=== PATIENT | female | born 1965 | race Caucasian/White ===

== ENCOUNTER 2016-04-14 13:31 | Inpatient (IN) | payer SELFPAY ==
[~2016-04-14] VITALS: Ht 165.1 cm; Wt 59.0 kg
[~2016-04-14 13:31] MED LIST: CORACAP PO; TAB-TAB PO; TIZA4 PO
[2016-04-14 13:32] VITALS: BP 169/108; PULSE 102; RESP 24; TEMP 97.9; O2SAT 100
[2016-04-14] MEDS ORDERED: MULT1TAB84 PO (13:53)
[2016-04-14] MEDS ORDERED: CORACAP6 PO (13:53)
[2016-04-14] MEDS ORDERED: CHOL100025 CHEW (13:53)
[2016-04-14] MEDS ORDERED: TIZA4TAB PO (13:53)
[2016-04-14 14:00] VITALS: BP 146/104; PULSE 89; RESP 24; O2SAT 100
[2016-04-14] MEDS ORDERED: ZANA2CAP PO (14:06)
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
[2016-04-14 14:39] LABS: AUTOMATED NEUTROPHIL # 4.8 TH/MM3 (1.8-7.7); BASOPHIL # 0.1 TH/MM3 (0-0.2); BASOPHIL % 0.9 % (0.0-2.0); EOSINOPHIL # 0.1 TH/MM3 (0-0.4); HEMATOCRIT 42.3 % (35.0-46.0); HEMO FLAGS DIFF FINAL; LYMPH % 36.5 % (9.0-44.0); LYMPHOCYTE # 3.2 TH/MM3 (1.0-4.8); MEAN CELL VOLUME 91.1 FL (80.0-100.0); MEAN CORPUSCULAR HEMOGLOBIN 31.7 PG (27.0-34.0); MEAN CORPUSCULAR HGB CONC 34.8 % (32.0-36.0); MONO % 6.6 % (0.0-8.0); PLATELET COUNT 280 TH/MM3 (150-450); RED BLOOD COUNT 4.64 MIL/MM3 (4.00-5.30); RED CELL DISTRIBUTION WIDTH 13.3 % (11.6-17.2); WHITE BLOOD COUNT 8.7 TH/MM3 (4.0-11.0)
--- NOTE | 2016-04-14 14:58 | RADRPT ---
EXAM DATE/TIME: 04/14/2016 14:44 [facility] COMPARISON: CT BRAIN W/O CONTRAST, February 19, 2014, 18:00. INDICATIONS : Syncope, left side facial and extremity weakness. RADIATION DOSE: 56.35 CTDIvol (mGy) MEDICAL HISTORY : Cardiovascular disease. Hypertension. SURGICAL HISTORY : None. ENCOUNTER: Initial ACUITY: 1 day PAIN SCALE: 3/10 LOCATION: Bilateral cranial TECHNIQUE: Multiple contiguous axial images were obtained of the head. Using automated exposure control and adj ustment of the mA and/or kV according to patient size, radiation dose was kept as low as reasonably a chievable to obtain optimal diagnostic quality images. FINDINGS: CEREBRUM: The ventricles are normal for age. No evidence of midline shift, mass lesion, hemorrhage or acute in farction. No extra-axial fluid collections are seen. POSTERIOR FOSSA: The cerebellum and brainstem are intact. The 4th ventricle is midline. The cerebellopontine angle i s unremarkable. EXTRACRANIAL: The visualized portion of the orbits is intact. SKULL: The calvaria is intact. No evidence of skull fracture. CONCLUSION: Normal examination. No significant change has occurred. Mario Hawley MD on April 14, 2016 at 14:55 Board Certified Radiologist. This report was verified electronically.
[2016-04-14 15:00] VITALS: BP 138/88; PULSE 87; RESP 22; O2SAT 99
[2016-04-14 15:10] LABS: ANION GAP 10 MEQ/L (5-15); BLOOD UREA NITROGEN 17 MG/DL (7-18); CHLORIDE 104 MEQ/L (98-107); GLOMERULAR FILTRATION RATE 54 ML/MIN (>89); POTASSIUM 3.7 MEQ/L (3.5-5.1); SODIUM (NA) 142 MEQ/L (136-145)
[2016-04-14 15:12] LABS: CREATINE KINASE 136 U/L (26-192)
--- NOTE | 2016-04-14 15:45 | RADRPT ---
EXAM DATE/TIME: 04/14/2016 14:38 [facility] COMPARISON: CHEST SINGLE AP, March 28, 2015, 12:41. INDICATIONS : Chest pain and Cough. Tingling feeling in left hands, arm and head. MEDICAL HISTORY : None. SURGICAL HISTORY : None. ENCOUNTER: Initial ACUITY: 3 weeks PAIN SCORE: 0/10 LOCATION: Bilateral chest FINDINGS: A single view of the chest demonstrates the lungs to be symmetrically aerated without evidence of mas s, infiltrate or effusion. The cardiomediastinal contours are unremarkable. Osseous structures are intact. CONCLUSION: No acute disease. No significant change has occurred. Mario Hawley MD on April 14, 2016 at 15:43 Board Certified Radiologist. This report was verified electronically.
[2016-04-14] MEDS ORDERED: ONDANSETRON HCL 4 MG/2 ML VIAL IV PUSH PRN ×2 (16:30→17:30)
[2016-04-14] MEDS ORDERED: NITROGLYCERIN 0.4 MG SL 25 TABS/BTL SL PRN (16:30)
--- NOTE | 2016-04-14 17:20 | HHI.HP ---
[facility]ician No Primary Care Physician Admission Diagnosis TIA, Chest pain Diagnoses: (1) TIA (transient ischemic attack) Diagnosis: Principal (2) Chest pain Diagnosis: Principal Chief Complaint: chest pain/ left sided numbness Travel History International Travel<30 Days: No Contact w/Intl Traveler <30 Da: No Traveled to Known Affected Are: No History of Present Illness patient is a 51 y/o female with history of hypertension- however not on any medications, presented to ER with chest pain. she says that the chest pain started few days ago. pain was described as midsternal chest pressure. she says that she's had some exertional dyspnea along with the pain. she says that this morning after she returned from her job, she started to have worsening chest pain for which she went to [facility] to check her blood pressure. she says that got scared after the machine reported her blood pressure as ' high'. she then started to have some numbness and tingling over the left arm, left face. this lasted for about two hours. on her way to ER she suddenly passed out. she denies any history of chest pain in the past but she says that her father had a heart attack at the age of 55. Review of Systems Constitutional: DENIES: Fever, Weight loss, Chills, Night Sweats Eyes: DENIES: Blurred vision, Diplopia, Vision loss, Double Vision Ears, nose, mouth, throat: DENIES: Tinnitus, Vertigo, Throat pain, Epistaxis Respiratory: DENIES: Apneas, Cough, Snoring, Wheezing, Hemoptysis, Sputum production, Shortness of breath Cardiovascular: COMPLAINS OF: Chest pain, Dyspnea on Exertion, DENIES: Palpitations, Syncope, PND, Lower Extremity Edema, Orthopnea, Claudication Gastrointestinal: DENIES: Abdominal pain, Black stools, Bloody stools, Constipation, Diarrhea, Nausea, Vomiting, Difficulty Swallowing, Anorexia Genitourinary: DENIES: Urinary frequency, Urgency, Hematuria, Dysuria Musculoskeletal: DENIES: Joint pain, Muscle aches, Stiffness, Joint Swelling Integumentary: DENIES: Rash Neurologic: COMPLAINS OF: Paresthesias, DENIES: Abnormal gait, Headache, Localized weakness, Seizures, Speech Problems, Tremor, Poor Balance Psychiatric: DENIES: Anxiety, Confusion, Mood changes, Depression, Hallucinations, Agitation, Suicidal Ideation, Homicidal Ideation, Delusions Past Family Social History Past Medical History hypertension back pain Past Surgical History hysterectomy Reported Medications Zanaflex (Tizanidine HCl) 2 Mg Cap 2 Mg PO TID PRN Multivitamin Adults (Multiple Vitamins W/ Minerals) 1 Tab 1 Tab PO DAILY Vitamin D3 (Cholecalciferol) 1,000 Unit Chew 1,000 Units CHEW DAILY Coral Calcium 500 Mg Cap 500 Mg PO DAILY Tizanidine (Tizanidine HCl) 4 Mg Tab 4 Mg PO Q8HR PRN Allergies: Coded Allergies: Penicillin (Verified Allergy, Severe, HIVES, 04/14/16) Active Ordered Medications Current Medications Ondansetron HCl (Zofran Inj) 4 mg Q8HR PRN IV PUSH NAUSEA; Start 04/14/16 at 16 :30; Status UNV Nitroglycerin (Nitrostat Sl) 0.4 mg Q5M PRN SL CHEST PAIN; Start 04/14/16 at 16 :30 Family History heart attack in her father at the age of 55. Social History smokes occasionally- doesn't drink. Physical Exam Vital Signs Vital Signs Date Time Temp Pulse Resp B/P Pulse Ox O2 Delivery O2 Flow Rate FiO2 04/14/16 15:00 87 22 138/88 99 Room Air 04/14/16 14:00 89 24 146/104 100 Room Air 04/14/16 13:55 99 25 100 Room Air 04/14/16 13:32 97.9 102 24 169/108 100 Room Air Physical Exam GENERAL: This is a well-nourished, well-developed patient, in no apparent distress. SKIN: No rashes, ecchymoses or lesions. Cool and dry. HEAD: Atraumatic. Normocephalic. No temporal or scalp tenderness. EYES: Pupils equal round and reactive. Extraocular motions intact. No scleral icterus. No injection or drainage. ENT: Nose without bleeding, purulent drainage or septal hematoma. Throat without erythema, tonsillar hypertrophy or exudate. Uvula midline. Airway patent. NECK: Trachea midline. No JVD or lymphadenopathy. Supple, nontender, no meningeal signs. CARDIOVASCULAR: Regular rate and rhythm without murmurs, gallops, or rubs. RESPIRATORY: Clear to auscultation. Breath sounds equal bilaterally. No wheezes , rales, or rhonchi. GASTROINTESTINAL: Abdomen soft, non-tender, nondistended. No hepato-splenomegaly , or palpable masses. No guarding. MUSCULOSKELETAL: Extremities without clubbing, cyanosis, or edema. No joint tenderness, effusion, or edema noted. No calf tenderness. Negative Homans sign bilaterally. NEUROLOGICAL: Awake and alert. Cranial nerves II through XII intact. Motor and sensory grossly within normal limits. Five out of 5 muscle strength in all muscle groups. Normal speech. Laboratory Laboratory Tests Test 04/14/16 14:15 White Blood Count 8.7 Red Blood Count 4.64 Hemoglobin 14.7 Hematocrit 42.3 Mean Corpuscular Volume 91.1 Mean Corpuscular Hemoglobin 31.7 Mean Corpuscular Hemoglobin 34.8 Concent Red Cell Distribution Width 13.3 Platelet Count 280 Mean Platelet Volume 9.3 Neutrophils (%) (Auto) 55.0 Lymphocytes (%) (Auto) 36.5 Monocytes (%) (Auto) 6.6 Eosinophils (%) (Auto) 1.0 Basophils (%) (Auto) 0.9 Neutrophils # (Auto) 4.8 Lymphocytes # (Auto) 3.2 Monocytes # (Auto) 0.6 Eosinophils # (Auto) 0.1 Basophils # (Auto) 0.1 CBC Comment DIFF FINAL Differential Comment Sodium Level 142 Potassium Level 3.7 Chloride Level 104 Carbon Dioxide Level 28.0 Anion Gap 10 Blood Urea Nitrogen 17 Creatinine 1.06 Estimat Glomerular Filtration 54 Rate Random Glucose 90 Calcium Level 10.5 Total Creatine Kinase 136 Creatine Kinase MB 2.0 Troponin I LESS THAN 0.02 Result Diagram: 04/14/16 1415 04/14/16 1415 Imaging Last Impressions Head CT 04/14/16 0000 Signed Impressions: Service Date/Time: Thursday, April 14, 2016 14:44 - CONCLUSION: Normal examination. No significant change has occurred. Mario Hawley MD Chest X-Ray 04/14/16 0000 Signed Impressions: Service Date/Time: Thursday, April 14, 2016 14:38 - CONCLUSION: No acute disease. No significant change has occurred. Mario Hawley MD EKG; sinus arrhythmia Assessment and Plan Assessment and Plan A/P - TIA neuro-checks- start aspirin-check carotid doppler and echo- neurology consulted -chest pain/ exertional dyspnea/ syncope with strong family history of CAD on aspirin- check the trend of cardiac enzymes- will consult cardiology -hypertension? - not on any meds at home- will monitor BP for now- vasotec prn -DVT prophylaxis with SCD's Discussed Condition With ER physician and the patient. Problem Qualifiers (1) TIA (transient ischemic attack): Qualified Code: G45.9 - Transient cerebral ischemia, unspecified type (2) Chest pain: Qualified Code: R07.9 - Chest pain, unspecified type Ericka Reeder MD Apr 14, 2016 17:20
[2016-04-14] MEDS ORDERED: ZOLPIDEM TARTRATE 5 MG TAB PO PRN (17:30)
[2016-04-14] MEDS ORDERED: ENALAPRILAT 1.25 MG/ML VIAL IV PUSH PRN (17:30)
[2016-04-14] MEDS ORDERED: ACETAMINOPHEN 325 MG TAB PO PRN (17:30)
[2016-04-14] MEDS ORDERED: SODIUM CHLORID 0.9% 500 ML INJ 500 ML IV ONE (17:30)
[2016-04-14 18:00] VITALS: BP 170/98; PULSE 78; RESP 17; O2SAT 99
--- NOTE | 2016-04-14 18:01 | MB ---
cc: SYLVIA FINNEGAN M.D. DATE OF CONSULTATION 04/14/2016 DATE OF 1965, 51 years old. REASON FOR CONSULTATION Possible TIA. HISTORY OF THE PRESENT ILLNESS The patient a pleasant 51-year-old woman with chronic history of back pain, received epidural steroid injections with Dr. Howard. Came in because she just was not feeling well for some time now but she started having some chest pain, pressure, some radiation into the left jaw, face with numbness as well as in the left arm. Feeling a little lightheaded and dizzy. Apparently there was a syncope outside of the ED when she opened her car door. No seizure-like events. She is concerned because she was here about 9 months ago and she had elevated blood pressures but she left and did not want to have an evaluation. Her father at 55 of a heart attack. Her other risk factors besides hypertension, she used to smoke in the past. She did go and get some aspirin today and took two baby aspirins. She still has some chest pressure, reproducible pressure. Denies any headaches, nausea or vomiting. No overt weakness. She just states she does not feel normal. She has a history of anxiety, hypertension, insomnia, chronic back pain follows with pain management. PAST SURGICAL HISTORY 1. C section. 2. Hysterectomy. 3. Arthroscopic right knee surgery. SOCIAL HISTORY Social drinker and currently no longer smokes cigarettes, occasional marijuana. ALLERGIES PENICILLIN. MEDICATIONS Home meds are: 1. Tizanidine. 2. Multivitamin. 3. D3. 4. Calcium. PHYSICAL EXAMINATION VITAL SIGNS: Temperature 97.9, pulse 87, respiratory rate 22, blood pressure 138/88. NECK: Supple. No carotid bruits. HEART: Currently is regular, S1-S2. No murmurs. LUNGS: Clear. CHEST: She has some tenderness over her anterior chest wall to palpation. NEUROLOGIC: She is awake, alert. She is oriented. Fluent. Pupils are reactive. Visual rae are full. Face is symmetrical. Tongue is midline. Sensory otherwise she states that she is numb over the ulnar distribution of the left arm which has been ongoing for some time now. There is no drift. No leg lag. Cerebellar testing is normal. Toes are downgoing. Reflexes are 1-2+. Finger nose finger does not past point. Gait is withheld. She is at bed rest right now. LABORATORY DATA CBC normal. Chemistries creatinine 1.06, GFR 54, calcium 10.5. Troponin less than 0.01. IMAGING STUDIES Chest x-ray no acute disease. CT head normal without any acute findings. She had an electrocardiogram looks like a sinus rhythm, heart rate in the 90s, however sinus, possible sinus tachycardia. IMPRESSION A 51-year-old woman with what sounds like TIA type symptoms. Her NIH currently at best is a one. She does have hypertension and chest pain to be determined. Believe cardiology probably will be seeing her versus the hospitalist evaluating her cardiac issues. RECOMMENDATIONS Recommend doing a stroke, TIA workup. Get an MRI of the brain and [place] of [place] MRA, carotid ultrasound, 2-D echo. Put her on baby aspirin daily. Normalize her blood pressure. SCDs and Lovenox for DVT prophylaxis. Check a lipid panel. Indicate a consult cardiology to determine if she needs to have any other testing. Further recommendations to be made accordingly. MD JANNETTE Karimi/LYSSA /4:57 PM /5:40 PM
[2016-04-14] MEDS: ASPIRIN EC 81 MG TABEC PO SCH (18:02)
[2016-04-14 19:05] VITALS: BP 139/93; PULSE 73; RESP 16; O2SAT 98
--- NOTE | 2016-04-14 20:02 | RADRPT ---
EXAM DATE/TIME: 04/14/2016 18:33 [facility] COMPARISON: No previous studies available for comparison. INDICATIONS : Transient ischemic attack. MEDICAL HISTORY : Hypertension. Chronic back and neck pain. SURGICAL HISTORY : Hysterectomy. section. Right knee surgery. ENCOUNTER: Initial ACUITY: 1 day PAIN SCORE: 0/10 LOCATION: Bilateral neck PEAK SYSTOLIC VELOCITIES (cm/sec): ICA/CCA RATIO: Right: 0.8 Left: 1.0 ICA: Right: 83 Left: 83 CCA: Right: 106 Left: 81 ECA: Right: 124 Left: 90 VERTEBRAL: Right: 49 antegrade Left: 40 antegrade Elevated flow velocities and ICA/CCA ratios have been found to correlate with increased degrees of vessel stenosis, calculated as percentage of diameter relative to a normal segment of distal ICA/CCA FINDINGS: RIGHT CAROTID: No significant stenosis is visualized. Minimal plaque is present. The waveforms are within normal thomas its. LEFT CAROTID: No significant stenosis is visualized. Minimal plaque is present. The waveforms are within normal li mits. VERTEBRAL ARTERIES: Antegrade flow is seen in both vertebral arteries. MISCELLANEOUS: None. CONCLUSION: Minimal plaque with no evidence of stenosis. Srinivasan Sweet MD on April 14, 2016 at 20:00 Board Certified Radiologist. This report was verified electronically.
[2016-04-14 21:00] VITALS: BP 137/91; PULSE 76; RESP 16; O2SAT 99
[2016-04-15] VITALS (10 sets, daily range): BP systolic 118–137; BP diastolic 68–97; PULSE 65–85; RESP 16–20; TEMP 95.1–97.5; O2SAT 96–100
[2016-04-15] MEDS ORDERED: ASPIRIN EC 81 MG TABEC PO SCH (09:00)
--- NOTE | 2016-04-15 09:36 | HHI.PR ---
Subjective Remarks walking in the room. says that chest pain is much better today. no new complaints. Objective Vitals Vital Signs Date Time Temp Pulse Resp B/P Pulse Ox O2 Delivery O2 Flow Rate FiO2 04/15/16 08:00 96.7 72 20 137/97 100 04/15/16 03:32 95.1 71 20 129/91 99 04/15/16 01:00 73 16 125/78 100 Room Air 04/14/16 21:00 76 16 137/91 99 Room Air 04/14/16 19:05 73 16 139/93 98 Room Air 04/14/16 18:00 78 17 170/98 99 Room Air 04/14/16 15:00 87 22 138/88 99 Room Air 04/14/16 14:00 89 24 146/104 100 Room Air 04/14/16 13:55 99 25 100 Room Air 04/14/16 13:32 97.9 102 24 169/108 100 Room Air Result Diagram: 04/14/16 1415 04/14/16 1415 Imaging Last Impressions Head CT 04/14/16 0000 Signed Impressions: Service Date/Time: Thursday, April 14, 2016 14:44 - CONCLUSION: Normal examination. No significant change has occurred. Mario Hawley MD Chest X-Ray 04/14/16 0000 Signed Impressions: Service Date/Time: Thursday, April 14, 2016 14:38 - CONCLUSION: No acute disease. No significant change has occurred. Mario Hawley MD Carotid Artery Ultrasound 04/14/16 0000 Signed Impressions: Service Date/Time: Thursday, April 14, 2016 18:33 - CONCLUSION: Minimal plaque with no evidence of stenosis. Srinivasan Sweet MD Objective Remarks GENERAL: This is a well-nourished, well-developed patient, in no apparent distress. CARDIOVASCULAR: Regular rate and regular rhythm without murmurs, gallops, or rubs. RESPIRATORY: Clear to auscultation. Breath sounds equal bilaterally. No wheezes , rales, or rhonchi. GASTROINTESTINAL: Abdomen soft, non-tender, nondistended. Normal, active bowel sounds MUSCULOSKELETAL: Extremities without clubbing, cyanosis, or edema. NEURO: Alert & Oriented x4 to person, place, time, situation. Moves all ext x4 Procedures none Medications and IVs Current Medications Ondansetron HCl (Zofran Inj) 4 mg Q8HR PRN IV PUSH NAUSEA; Start 04/14/16 at 16 :30 Nitroglycerin (Nitrostat Sl) 0.4 mg Q5M PRN SL CHEST PAIN; Start 04/14/16 at 16 :30 Aspirin (Ecotrin Ec) 81 mg DAILY PO ; Start 04/15/16 at 09:00; Stop 04/15/16 at 09:00; Status DC Aspirin (Ecotrin Ec) 81 mg DAILY PO Last administered on 04/14/16 18:02; Start 04/14/16 at 17:15 Tizanidine HCl (Zanaflex) 2 mg TID PRN PO SPASM; Start 04/14/16 at 17:15 Ondansetron HCl (Zofran Inj) 4 mg Q8HR PRN IV PUSH NAUSEA; Start 04/14/16 at 17 :30; Status UNV Acetaminophen (Tylenol) 650 mg Q4H PRN PO FEVER/ PAIN Last administered on 04/14 18:03; Start 04/14/16 at 17:30 Zolpidem Tartrate 5 mg 5 mg HS PRN PO INSOMNIA; Start 04/14/16 at 17:30 Sodium Chloride (NS 500 ml Inj) 500 ml @ 50 mls/hr Q10H ONCE IV Last administered on 04/14/16 18:02; Start 04/14/16 at 17:30; Stop 04/15/16 at 03:29 ; Status DC Enalaprilat (Vasotec Inj) 1.25 mg Q8H PRN IV PUSH SBP>180, DBP>110; Start at 17:30 A/P Assessment and Plan A/P - TIA head Ct and carotid doppeler negative- MRI/MRA brain pending- neuro-checks- started aspirin- neurology consult appreciated. -chest pain/ exertional dyspnea/ syncope with strong family history of CAD on aspirin- cardiology consulted- plan for stress test. -hypertension? - not on any meds at home- will monitor BP for now- vasotec prn -DVT prophylaxis with SCD's Ericka Reeder MD Apr 15, 2016 09:36
[2016-04-15] MEDS: ASPIRIN EC 81 MG TABEC PO SCH (09:47)
--- NOTE | 2016-04-15 10:57 | RADRPT ---
EXAM DATE/TIME: 04/15/2016 10:20 [facility] COMPARISON: No previous studies available for comparison. INDICATIONS : TIA. Left sided numbness. Dizziness. MEDICAL HISTORY : Hypertension. SURGICAL HISTORY : section. Tubal ligation. Right knee surgery. ENCOUNTER: Subsequent ACUITY: 2 day PAIN SCORE: 0/10 LOCATION: head. TECHNIQUE: Multiplanar, multisequence MRI of the brain was performed without contrast. FINDINGS: CEREBRUM: The ventricles are normal for age. No evidence of midline shift, mass lesion, hemorrhage or acute in farction. No extraaxial fluid collections are seen. The pituitary gland and suprasellar cistern are normal in configuration. WHITE MATTER: No significant signal abnormalities are seen in the white matter. POSTERIOR FOSSA: The cerebellum and brainstem are intact. The 4th ventricle is midline. The cerebellopontine angle is unremarkable. The cerebellar tonsils are normal in position. DIFFUSION IMAGING: No focal areas of restricted diffusion are seen. No evidence of acute infarction. EXTRACRANIAL: The visualized portions of the orbits and paranasal sinuses are unremarkable. CONCLUSION: Normal examination. Merry Ramsey MD on April 15, 2016 at 10:55 Board Certified Radiologist. This report was verified electronically.
--- NOTE | 2016-04-15 11:08 | RADRPT ---
EXAM DATE/TIME: 04/15/2016 10:20 [facility] COMPARISON: No previous studies available for comparison. INDICATIONS : TIA. Left sided numbness. Dizziness. MEDICAL HISTORY : Hypertension. SURGICAL HISTORY : section. Tubal ligation. Right knee surgery. ENCOUNTER: Subsequent ACUITY: 2 day PAIN SCORE: 0/10 LOCATION: head. Please note a normal MRA of the brain does not entirely exclude the possibility of a small aneurysm, nor the possibility of distal intracranial vessel disease. TECHNIQUE: 3D time of flight MRA was performed. Source images, multiplanar STS MIP, and 3D volume MIP reconstru ctions were reviewed. FINDINGS: There is excellent visualization of the major intracranial arteries out to the second-order branch ve ssels. There is no evidence for aneurysm, vessel truncation or stenosis, and no evidence for vascula r malformation. CONCLUSION: Normal examination. Merry Ramsey MD on April 15, 2016 at 11:06 Board Certified Radiologist. This report was verified electronically.
--- NOTE | 2016-04-15 12:01 | MB ---
cc: [facility] DATE OF CONSULTATION: 04/15/2016 DATE OF : 1965. REASON FOR CONSULTATION Epigastric chest discomfort. HISTORY OF PRESENT ILLNESS 51-year-old female with past medical history significant for anxiety, chronic back pain, hypertension, positive family history for premature CAD. Presented to the hospital with complaining of epigastric chest pressure discomfort which radiates to the jaw and associated with numbness to the face as well as to the left arm and toe was is episode was at complain by an episode loss of consciousness and syncope. She has been consulted to neurology to rule out stroke/TIA. CT scan is negative so far she has a pending MRI/MRA of the brain. Cardiology has been consulted because episode of chest pressure that she reports she has been going on from a couple of days. Currently she remains she is chest pain free. She denies shortness of breath, palpitations, nausea, vomiting, diarrhea, chest trauma. REVIEW OF SYSTEMS Review of systems negative except for what is mentioned in the history of present illness. PAST SURGERIES 1. 2. hysterectomy 3. Arthroscopic right knee surgery 4. hypertension 5. Anxiety 6. chronic back pain 7. status post steroid injections in the past. ALLERGIES PENICILLIN SOCIAL HISTORY: She is a social drinker and smoker. She uses occasional marijuana. HOME MEDICATIONS: Multivitamin Vitamin D Calcium . FAMILY HISTORY Her dad had a massive heart attack at age 55. PHYSICAL EXAMINATION VITAL SIGNS: Temperature 97.7, respiratory rate 20, pulse 72, blood pressure 137 /97. She is satting 100% on room air. IN GENERAL: She is awake, alert and oriented x 3 in no acute distress. NECK: No jugular venous distention. No carotid bruits. HEART: Regular rate and rhythm. No murmurs, rubs or gallops appreciated. LUNGS: Clear to auscultation bilaterally. No wheezes or rhonchi or rales. ABDOMEN: Soft, nontender, nondistended with positive bowel sign. EXTREMITIES: No cyanosis or edema. DATA CBC hemoglobin of 14, hematocrit of 42, platelet count 280. Chemistries, electrolytes sodium 142, potassium 3.7, BUN 17, creatinine 1.06, troponins have been negative x3 with values of less than 0.02, cholesterol 256, LDL 103, HDL 136. Head CT is normal. CHEST X-RAY He is there is no acute pulmonary per cardiopulmonary process. Carotid ultrasound shows minimal apply with no evidence of stenosis. EKG shows a second normal sinus rhythm. Telemetry shows also normal sinus rhythm. No events on telemetry monitoring ASSESSMENT AND PLAN: A 51-year-old female with cardiac risk factors that include hypertension and family history that presents to the hospital with what sounds to be a transient ischemic attack symptoms. So far her head CT negative. She still pending an brain MRI/MRA. Troponins have been negative. She is chest pain-free right now she does have of the strong family history of coronary artery disease. I understand that after TIA and CVA has been ruled out it would be reasonable do myocardial perfusion study to further assess any coronary artery disease. Thus for now she should continue the aspirin and low-dose XAVIER inhibitor as well as a statin and we get a myocardial perfusion study either today or tomorrow, after she has been cleared from a neurology standpoint. If the Lexiscan is negative she should be able to discharge home with outpatient follow up. Thank you for the opportunity to take part in the care of this patient. Feel free to contact me with any questions or concerns. MD RUBIO Grigsby/skyler /9:40 AM /10:38 AM GENIE
--- NOTE | 2016-04-15 12:27 | EC ---
Study Study Date:04/15/2016 STUDY CONCLUSIONS SUMMARY - Left ventricle: The cavity size was normal. Wall thickness was normal. Systolic function was normal. The estimated ejection fraction was in the range of 55% to 60%. Wall motion was normal; there were no regional wall motion abnormalities. - Right atrium: The atrium was mildly dilated. - Tricuspid valve: Mild regurgitation. - Pulmonary arteries: PA peak pressure: 32mm Hg (S). If LV function is below 40, please consider prescribing an ACEI or ARB or document rationale for non-use. PROCEDURE DATA STUDY STATUS: Elective. Procedure: Transthoracic echocardiography. Image quality was good. Scanning was performed from the parasternal, apical, and subcostal acoustic windows. Study completion: The patient tolerated the procedure well. Transthoracic echocardiography. M-mode, complete 2D, complete spectral Doppler, and color Doppler. Patient status: Inpatient. CARDIAC ANATOMY LEFT VENTRICLE: The cavity size was normal. Wall thickness was normal. Systolic function was normal. The estimated ejection fraction was in the range of 55% to 60%. Wall motion was normal; there were no regional wall motion abnormalities. AORTIC VALVE: Trileaflet; normal thickness leaflets. Doppler: Transvalvular velocity was within the normal range. There was no stenosis. No regurgitation. AORTA: Aortic root: The aortic root was normal in size. MITRAL VALVE: Structurally normal valve. Doppler: Transvalvular velocity was within the normal range. There was no evidence for stenosis. No regurgitation. LEFT ATRIUM: The atrium was normal in size. RIGHT VENTRICLE: The cavity size was normal. Wall thickness was normal. PULMONIC VALVE: Doppler: Transvalvular velocity was within the normal range. There was no evidence for stenosis. No regurgitation. TRICUSPID VALVE: Structurally normal valve. Doppler: Transvalvular velocity was within the normal range. Mild regurgitation. PULMONARY ARTERY: The main pulmonary artery was normal-sized. Systolic pressure was within the normal range. RIGHT ATRIUM: The atrium was mildly dilated. PERICARDIUM: There was no pericardial effusion. SYSTEMIC VEINS: Inferior vena cava: The vessel was normal in size. BASIC MEASUREMENTS ADULT NORMAL Left ventricle LV internal dimension, ED, chordal level, 45.7 mm 43-52 PLAX LV posterior wall thickness, ED 8.69 mm IVS/LVPW ratio, ED 1.02 <1.3 Ventricular septum Septal thickness, ED 8.86 mm Aortic valve Leaflet separation 20 mm 15-26 Left atrium Anterior-posterior dimension 36 mm Right ventricle RV internal dimension, ED, PLAX 24.3 mm 19-38 BASIC MEASUREMENTS ADULT NORMAL Aortic valve Leaflet separation 20 mm 15-26 Aorta Root diameter, ED 29 mm 20-37 DOPPLER MEASUREMENTS ADULT NORMAL Main pulmonary artery Pressure, S *32 mm Hg =30 Mitral valve Peak E-wave velocity 60.5 cm/s Peak A-wave velocity 62.1 cm/s Peak E/A ratio 1 Tricuspid valve Regurgitant peak velocity 250 cm/s Peak RV-RA gradient, S 25 mm Hg Maximal regurgitant velocity 250 cm/s Systemic veins Estimated CVP 5 mm Hg Right ventricle RV pressure, S *32 mm Hg <30 LEGEND: Mean values are shown as u=mean value. Asterisk (*) connolly values outside specified normal range. Prepared and signed by Maldonado Xiong [id number]
[2016-04-15] MEDS ORDERED: ACETAMINOPHEN/HYDROcodone 325 MG/5 MG TAB PO PRN (12:30)
--- NOTE | 2016-04-15 17:32 | EKG ---
Date Performed: 04/14/2016 Time Performed: 13:44:38 PTAGE: 51 years EKG: Sinus rhythm WITH SINUS ARRHYTHMIA When compared to previous tracing, sinus rate has increased. NORMAL ECG PREVIOUS TRACING : 03/28/2015 18.13 DOCTOR: Del Ulloa Interpretating Date/Time 04/15/2016 17:30:57
[2016-04-16 03:46] VITALS: BP 127/93; PULSE 75; RESP 18; TEMP 97.1; O2SAT 99
--- NOTE | 2016-04-16 07:31 | HHI.PR ---
Subjective Remarks resting comfortably with no distress. no chest pain or sob. Objective Vitals Vital Signs Date Time Temp Pulse Resp B/P Pulse Ox O2 Delivery O2 Flow Rate FiO2 04/16/16 03:46 97.1 75 18 127/93 99 04/15/16 23:23 97.5 84 19 118/68 99 04/15/16 20:25 78 04/15/16 20:02 97.3 85 19 128/95 97 04/15/16 16:00 97.3 79 20 124/84 98 04/15/16 15:00 78 04/15/16 13:35 65 04/15/16 12:00 97.0 81 20 134/90 96 04/15/16 08:00 96.7 72 20 137/97 100 I/O 04/15/16 04/15/16 04/15/16 04/16/16 04/16/16 04/16/16 07:00 15:00 23:00 07:00 15:00 23:00 Intake Total 750 ml Output Total 800 ml Balance -50 ml Intake Oral 750 ml Output Urine Total 800 ml Result Diagram: 04/14/16 1415 04/14/16 1415 Imaging Last Impressions Head Magnetic Resonance Angiography 04/15/16 0000 Signed Impressions: Service Date/Time: March 10:20 - CONCLUSION: Normal examination. Merry Ramsey MD Brain MRI 04/15/16 0000 Signed Impressions: Service Date/Time: March 10:20 - CONCLUSION: Normal examination. Merry Ramsey MD Head CT 04/14/16 0000 Signed Impressions: Service Date/Time: Thursday, April 14, 2016 14:44 - CONCLUSION: Normal examination. No significant change has occurred. Mario Hawley MD Chest X-Ray 04/14/16 0000 Signed Impressions: Service Date/Time: Thursday, April 14, 2016 14:38 - CONCLUSION: No acute disease. No significant change has occurred. Mario Hawley MD Carotid Artery Ultrasound 04/14/16 0000 Signed Impressions: Service Date/Time: Thursday, April 14, 2016 18:33 - CONCLUSION: Minimal plaque with no evidence of stenosis. Srinivasan Sweet MD Objective Remarks GENERAL: This is a well-nourished, well-developed patient, in no apparent distress. CARDIOVASCULAR: Regular rate and regular rhythm without murmurs, gallops, or rubs. RESPIRATORY: Clear to auscultation. Breath sounds equal bilaterally. No wheezes , rales, or rhonchi. GASTROINTESTINAL: Abdomen soft, non-tender, nondistended. Normal, active bowel sounds MUSCULOSKELETAL: Extremities without clubbing, cyanosis, or edema. NEURO: Alert & Oriented x4 to person, place, time, situation. Moves all ext x4 Procedures none Medications and IVs Current Medications Ondansetron HCl (Zofran Inj) 4 mg Q8HR PRN IV PUSH NAUSEA; Start 04/14/16 at 16 :30 Nitroglycerin (Nitrostat Sl) 0.4 mg Q5M PRN SL CHEST PAIN; Start 04/14/16 at 16 :30 Aspirin (Ecotrin Ec) 81 mg DAILY PO ; Start 04/15/16 at 09:00; Stop 04/15/16 at 09:00; Status DC Aspirin (Ecotrin Ec) 81 mg DAILY PO Last administered on 04/15/16 09:47; Start 04/14/16 at 17:15 Tizanidine HCl (Zanaflex) 2 mg TID PRN PO SPASM Last administered on 04/15/16 21:57; Start 04/14/16 at 17:15 Ondansetron HCl (Zofran Inj) 4 mg Q8HR PRN IV PUSH NAUSEA; Start 04/14/16 at 17 :30; Status UNV Acetaminophen (Tylenol) 650 mg Q4H PRN PO FEVER/ PAIN Last administered on 04/14 18:03; Start 04/14/16 at 17:30 Zolpidem Tartrate 5 mg 5 mg HS PRN PO INSOMNIA Last administered on 04/15/16 21:57; Start 04/14/16 at 17:30 Sodium Chloride (NS 500 ml Inj) 500 ml @ 50 mls/hr Q10H ONCE IV Last administered on 04/14/16 18:02; Start 04/14/16 at 17:30; Stop 04/15/16 at 03:29 ; Status DC Enalaprilat (Vasotec Inj) 1.25 mg Q8H PRN IV PUSH SBP>180, DBP>110; Start at 17:30 Lisinopril (Prinivil) 5 mg DAILY PO ; Start 04/16/16 at 09:00 Atorvastatin Calcium (Lipitor) 40 mg DAILY PO ; Start 04/16/16 at 09:00 Acetaminophen/ Hydrocodone Bitart ([place] 5-325 Mg) 1 tab Q6H PRN PO HEADACHE; Start 04/15/16 at 12:30 A/P Assessment and Plan A/P - TIA head Ct and carotid doppeler negative- MRI/MRA brain negative. carotid doppler with no significant stenosis. neuro-checks- started aspirin- neurology consult appreciated. -chest pain/ exertional dyspnea/ syncope with strong family history of CAD on aspirin- cardiology consulted- plan for stress test. echo with EF 55% and no regional wall motion abnormalities. -hypertension? - not on any meds at home- will monitor BP for now- f/u as outpatient. -DVT prophylaxis with SCD's Discharge Planning dc home today if stress test is negative. see med list. f/u; pcp. d/w the patient. Ericka Reeder MD Apr 16, 2016 07:31 Qualified Code: G45.9 - Transient cerebral ischemia, unspecified type (2) Chest pain: Qualified Code: R07.9 - Chest pain, unspecified type Ericka Reeder MD Apr 16, 2016 07:31
[2016-04-16] MEDS ORDERED: ASPI81TA11 PO (07:34)
[2016-04-16] MEDS ORDERED: LISI-519 PO (07:34)
[2016-04-16] MEDS ORDERED: LIPI40TA PO (07:34)
--- NOTE | 2016-04-16 07:35 | HHI.DCPOC ---
Discharge Care Plan Diagnosis: (1) Chest pain (2) TIA (transient ischemic attack) Additional Problems losing consciousness. Goals to Promote Your Health * To prevent worsening of your condition and complications * To maintain your health at the optimal level Directions to Meet Your Goals Take your medications as prescribed Follow your dietary instruction Follow activity as directed Keep your appointments as scheduled Take your immunizations and boosters as scheduled If your symptoms worsen call your PCP, if no PCP go to Urgent Care Center or Emergency Room Smoking is Dangerous to Your Health. Avoid second hand smoke Call the 24-hour hour crisis hotline for domestic abuse at Ericka Reeder MD Apr 16, 2016 07:35
--- NOTE | 2016-04-16 07:36 | HHI.DS ---
Discharge Summary Admission Date Apr 14, 2016 at 19:28 Discharge Date: Apr 16, 2016 Admitting Diagnosis TIA, Chest pain (1) TIA (transient ischemic attack) ICD Code: G45.9 Diagnosis: Principal (2) Chest pain ICD Code: R07.9 Diagnosis: Principal Procedures none Brief History - From Admission patient is a 51 y/o female with history of hypertension- however not on any medications, presented to ER with chest pain. she says that the chest pain started few days ago. pain was described as midsternal chest pressure. she says that she's had some exertional dyspnea along with the pain. she says that this morning after she returned from her job, she started to have worsening chest pain for which she went to [facility] to check her blood pressure. she says that got scared after the machine reported her blood pressure as ' high'. she then started to have some numbness and tingling over the left arm, left face. this lasted for about two hours. on her way to ER she suddenly passed out. she denies any history of chest pain in the past but she says that her father had a heart attack at the age of 55. CBC/BMP: 04/14/16 1415 04/14/16 1415 Significant Findings Laboratory Tests Test 04/14/16 04/14/16 04/14/16 04/15/16 14:15 17:02 21:45 05:46 Creatinine 1.06 MG/DL (0.50-1.00) Estimat Glomerular Filtration 54 ML/MIN (>89) Rate Calcium Level 10.5 MG/DL (8.5-10.1) Troponin I LESS THAN 0.02 LESS THAN 0.02 LESS THAN 0.02 NG/ML NG/ML NG/ML (0.02-0.05) (0.02-0.05) (0.02-0.05) Cholesterol Level 256 MG/DL (120-200) LDL Cholesterol 103 MG/DL (0-99) HDL Cholesterol 136.0 MG/DL (40.0-60.0) Imaging Last Impressions Head Magnetic Resonance Angiography 1/26/17 0000 Signed Impressions: Service Date/Time: March 10:20 - CONCLUSION: Normal examination. Merry Ramsey MD Brain MRI 04/15/16 Signed Impressions: Service Date/Time: March 10:20 - CONCLUSION: Normal examination. Merry Ramsey MD Head CT 04/14/16 Signed Impressions: Service Date/Time: Thursday, April 14, 2016 14:44 - CONCLUSION: Normal examination. No significant change has occurred. Mario Hawley MD Chest X-Ray 04/14/16 Signed Impressions: Service Date/Time: Thursday, April 14, 2016 14:38 - CONCLUSION: No acute disease. No significant change has occurred. Mario Hawley MD Carotid Artery Ultrasound 04/14/16 Signed Impressions: Service Date/Time: Thursday, April 14, 2016 18:33 - CONCLUSION: Minimal plaque with no evidence of stenosis. Srinivasan Sweet MD PE at Discharge GENERAL: This is a well-nourished, well-developed patient, in no apparent distress. CARDIOVASCULAR: Regular rate and regular rhythm without murmurs, gallops, or rubs. RESPIRATORY: Clear to auscultation. Breath sounds equal bilaterally. No wheezes , rales, or rhonchi. GASTROINTESTINAL: Abdomen soft, non-tender, nondistended. Normal, active bowel sounds MUSCULOSKELETAL: Extremities without clubbing, cyanosis, or edema. NEURO: Alert & Oriented x4 to person, place, time, situation. Moves all ext x4 Hospital Course - TIA head Ct and carotid doppeler negative- MRI/MRA brain negative. carotid doppler with no significant stenosis. neuro-checks- started aspirin- neurology consult appreciated. -chest pain/ exertional dyspnea/ syncope with strong family history of CAD on aspirin- cardiology consulted- plan for stress test. echo with EF 55% and no regional wall motion abnormalities. -hypertension? - started on lisinopril- f/u as outpatient. -dyslipidemia; started on statin- advised to comply with low-fat diet -DVT prophylaxis with SCD's Pt Condition on Discharge: Good Discharge Disposition: Discharge Home Discharge Time: <= 30 minutes Discharge Instructions DIET: Follow Instructions for: Heart Healthy Diet Activities you can perform: Regular-No Restrictions Follow up Referrals: PCP Follow-up New Medications: Aspirin DR (Aspirin EC) 81 Mg Tabdr 81 MG PO DAILY tia Days 30 Ref 0 TAB Atorvastatin (Lipitor) 40 Mg Tab 40 MG PO DAILY dyslipidemia Days 30 Ref 0 TAB Lisinopril (Lisinopril) 5 Mg Tab 5 MG PO DAILY hypertension Days 30 Ref 0 TAB Continued Medications: Cholecalciferol (Vitamin D3) 1,000 Unit Chew 1000 UNITS CHEW DAILY Nutritional Supplement #1 Ref 0 BOTTLE Coral Calcium (Coral Calcium) 500 Mg Cap 500 MG PO DAILY Nutritional Supplement #1 Ref 0 BOTTLE Multiple Vitamins W/ Minerals (Multivitamin Adults) 1 Tab 1 TAB PO DAILY Nutritional Supplement Ref 0 TAB Tizanidine (Tizanidine) 4 Mg Tab 4 MG PO Q8HR PRN SLEEP Ref 0 TAB Tizanidine (Zanaflex) 2 Mg Cap 2 MG PO TID PRN SPASM Ref 0 CAP Ericka Reeder MD Apr 16, 2016 07:36
[2016-04-16 08:00] VITALS: PULSE 80
[2016-04-16] MEDS: ASPIRIN EC 81 MG TABEC PO SCH (08:12)
[2016-04-16 08:39] VITALS: BP 134/95; PULSE 83; RESP 20; TEMP 97.8; O2SAT 95
[2016-04-16] MEDS ORDERED: LISINOPRIL 5 MG TAB PO SCH (09:00)
[2016-04-16] MEDS ORDERED: ATORVASTATIN 40 MG TAB PO SCH (09:00)
[2016-04-16] MEDS ORDERED: REGADENOSON INJ 0.4 MG/5 ML SYR ONE (11:05)
[2016-04-16] MEDS ORDERED: AMINOPHYLLINE INJ 250 MG/10 ML VIAL ONE (12:18)
--- NOTE | 2016-04-16 13:38 | RADRPT ---
EXAM DATE/TIME: 04/16/2016 11:19 [facility] COMPARISON: CHEST SINGLE AP, April 14, 2016, 14:38. INDICATIONS : Chest pain for 1 week. Coronary artery disease. DOSE: 26.3 mCi Tc99m Myoview at stress. 8.1 mCi Tc99m Myoview at rest. 0.4 mg Lexiscan STRESS SYMPTOMS: Dyspnea, facial flush, dizziness, and throat tightness. MEDICATIONS: 1.) 100 mg Aminophylline IV EJECTION FRACTION: 39% MEDICAL HISTORY : Hypertension. SURGICAL HISTORY : Hysterectomy. section. Right knee surgery ENCOUNTER: Initial ACUITY: 1 week PAIN SCALE: 2/10 LOCATION: chest pain TECHNIQUE: The patient underwent pharmacologic stress with infusion of prescribed dose. Continuous ECG tracing was monitored during stress. Gated SPECT imaging was performed after stress and conventional SPECT i maging was performed at rest. The examination was performed on a SPECT/CT scanner, both attenuation and non-corrected datasets were reviewed. FINDINGS: DISTRIBUTION: The maximum perfused segment at stress is in the anterior lateral wall. PERFUSION STUDY: The pattern of perfusion at stress is within normal limits. GATED STUDY: Questionable mild generalized hypokinesia CONCLUSION: Ejection fraction is low with possible mild borderline generalized hypokinesia. Possibility of cardio myopathy not excludable. No perfusion defects.. RISK CATEGORY: Low (<1% Annual Mortality Rate) Mario Hawley MD on April 16, 2016 at 13:33 Board Certified Radiologist. This report was verified electronically.
== END 2016-04-16 18:47 | disposition home or self-care (01) | DRG 69 ==
LOC: NEPA 13:31 → NEDA 16:24 → OBSVTOIN 19:28 → NEDH 23:28 → NEPFCDU 04-15 02:43
PROVIDERS: ADMIT Internal Medicine; ATTEND Internal Medicine
DX: G45.9 Transient cerebral ischemic attack, unspecified (principal); I10 Essential (primary) hypertension; S80.212A Abrasion, left knee, initial encounter; F12.90 Cannabis use, unspecified, uncomplicated; F17.200 Nicotine dependence, unspecified, uncomplicated; Z82.49 Family history of ischemic heart disease and other diseases of the circulatory system
CPT/HCPCS: 70450; 70544; 70551; 71010; 78452; 80048; 80061; 82550; 82552; 84484; 85025; 93005; 93017; 93306; 93880; A9502; J0280; J2785; J7040